=== PATIENT | female | born 2000 | race Caucasian/White ===

== ENCOUNTER 2020-01-21 17:09 | Emergency (ER) | payer BC ==
[~2020-01-21] VITALS: Ht 152.4 cm; Wt 51.6 kg
--- NOTE | 2020-01-21 17:20 | NUR ---
pt ambulated to room, changed into gown, resting on gurney. Pt given warm blanket for comfort, NAD, RESP WNL, VSS, P/W/D, FCS no SOB noted. WCTM. waiting for MD assessment.
[2020-01-21] MEDS ORDERED: PROPARACAINE OPHTH 0.5%, 15ML ONE (17:26)
[2020-01-21] MEDS ORDERED: FLUORESCEIN OPHTHALMIC 1 MG STRIP ONE ×2 (17:26)
--- NOTE | 2020-01-21 17:35 | NUR ---
Dr Leahy at for Eval and to discuss POC. Pt resting in gurney, NAD, VSS, RESP WNL, WCTM.
[2020-01-21 17:49] VITALS: BP 128/82
--- NOTE | 2020-01-21 18:09 | NUR ---
Patient/Caregiver given discharge instructions and they have confirmed that they understand the instructions. Patient ambulatory with steady gait. Denies additional questions at this time. NAD. P/W/D. RESP WNL
== END 2020-01-21 18:38 | disposition home or self-care (01) ==
LOC: ED 17:45
DX: H10.213 Acute toxic conjunctivitis, bilateral (principal); R21 Rash and other nonspecific skin eruption; F17.200 Nicotine dependence, unspecified, uncomplicated
CPT/HCPCS: 99283